=== PATIENT | female | born 1970 | race Caucasian/White ===

== ENCOUNTER 2016-04-23 20:32 | Observation (INO) | payer BC ==
[2016-04-23] MEDS ORDERED: ASPIRIN 325 MG TABLET.DR PO ONE (20:36)
[2016-04-23] MEDS ORDERED: MAG HYDROX/ALUMINUM HYD/SIMETH 30 ML UDC PO ONE (20:36)
[2016-04-23] MEDS ORDERED: LIDOCAINE HCL 20 ML UDC PO ONE (20:36)
--- NOTE | 2016-04-23 20:45 | ERNOTE ---
Medical Problem HPI - Narrative Date of Service: 04/23/16 - General Time Seen by Provider: 04/23/16 20:34 Source: patient Exam Limitations: no limitations - Immun/Allergies/Home Medications Allergies/Adverse Reactions: Allergies ezetimibe [From Vytorin] Allergy (Verified 04/23/16 20:36) rosuvastatin calcium [From Crestor] Allergy (Verified 04/23/16 20:36) simvastatin [From Vytorin] Allergy (Verified 04/23/16 20:36) lisinopril Adverse Reaction (Verified 04/23/16 20:36) Home Medications: HOME MEDICATIONS Azithromycin [Zithromax] 250 mg PO DAILY 04/23/16 [Last Taken Unknown] Methylprednisolone [Medrol Dosepak] 4 mg PO DAILY 04/23/16 [Last Taken Unknown] busPIRone HCL [Buspar] 10 mg PO DAILY 04/23/16 [Last Taken Unknown] clonazePAM [Klonopin] 0.5 mg PO DAILY 04/23/16 [Last Taken Unknown] - History of Present History Narrative: Pt is here for substernal chest pains which began 15 min prior to presentation to ED. It radiates to the mid back. History of CAD and Gastric bypass. On Prednisone and Zpak for URI. pain started at rest. Review of Systems - Review of Systems Constitutional: Present: no symptoms reported EYE: Present: no symptoms reported ENT: Present: no symptoms reported Respiratory: Present: no symptoms reported Cardiology: Present: See HPI Gastrointestinal/Abdominal: Present: See HPI Genitourinary: Present: no symptoms reported Musculoskeletal: Present: no symptoms reported Skin: Present: no symptoms reported Physical Exam - Physical Exam General Appearance: Present: wd/wn, alert, no apparent distress - pt is obese Eye Exam: Normal inspection: bilateral, PERRL: bilateral, EOMI: bilateral Ears, Nose, Throat: Present: normal ENT inspection, hearing grossly normal, normal pharynx Neck: Present: normal inspection, nontender, supple Respiratory: Present: no respiratory distress, normal breath sounds, chest nontender, lungs clear Cardiovascular/Chest: Present: regular rate, rhythm, no murmur, normal peripheral pulses Gastrointestinal/Abdominal: Present: normal bowel sounds - obese Extremity Exam: Present: normal inspection, non-tender, no edema, normal range of motion ED Progress - Date and Time Seen: Date and Time: Patient's chest pain did NOT go away with GI cocktail or with Morphine but resolved with Sublingual Nitro. Will admit pt for Chest pain 04/23/16 21:54 - Results and Orders Patient's Lab Results:: I have reviewed the patient's lab results. - Vital Signs Patient's Vital Signs:: I have reviewed the patient's vital signs. Departure - Departure Clinical Impression: Chest pain Qualifiers: Chest pain type: unspecified Qualified Code(s): R07.9 - Chest pain, unspecified Disposition: [facility] Condition: Fair Referrals: [Primary Care Provider] -
[2016-04-23 20:52] LABS: Hematocrit 40.4 % (37.0-47.0); Hemoglobin 13.5 gm/dL (12.5-16.0); Mean Cell Volume 88.8 fl (78-100); Mean Corpuscular Hemoglobin 29.7 pg (27-31); Mean Corpuscular Hgb Conc 33.4 g/dl (32-36); Mean Platelet Volume 10.6 fl (6.0-9.5); Neutrophil # 3.4 K/mm3 (1.3-6.0); Neutrophil % 43.5 % (42-75.0); Platelet Count 254 K/mm3 (150-450); Red Blood Count 4.55 M/mm3 (4.2-5.4); Red Cell Distribution Width 12.3 % (11.5-14.0); White Blood Count 7.9 K/mm3 (4.0-10.5)
[2016-04-23] MEDS ORDERED: ASPIRIN 81 MG TAB.CHEW ONE (20:52)
[2016-04-23] MEDS ORDERED: ASPIRIN 325 MG TABLET.DR ONE (20:53)
[2016-04-23] MEDS ORDERED: MORPHINE SULFATE 2 MG/ML DISP.SYRIN IV ONE (20:55)
[2016-04-23] MEDS ORDERED: MORPHINE SULFATE 2 MG/ML DISP.SYRIN ONE (20:56)
[2016-04-23] MEDS ORDERED: NITROGLYCERIN 0.4 MG/TAB BTL SL ONE (21:04)
[2016-04-23 21:12] LABS: ALT 44 U/L (19-67); AST 41 U/L (0-48); Albumin * 3.5 gm/dl (3.4-5.0); Alkaline Phosphatase * 110 U/L (50-170); Anion Gap 16.1 mmol/L (6.8-13.8); BUN/Creatinine Ratio 23.8 (9.0-21.6); Bilirubin, Total 0.3 mg/dL (0.0-1.1); Blood Urea Nitrogen 19 mg/dL (3-23); Ca. Corrected For Albumin 8.7 mg/dL (8.4-10.2); Calcium * 8.6 mg/dL (7.9-10.9); Carbon Dioxide 26.9 mmol/L (24-32.6); Chloride 100 mmol/L (97-106); Glucose * 106 mg/dL (70-110); Sodium 139 mmol/L (132-142); Total Protein 7.1 gm/dL (6.2-8.2); Troponin I Less than 0.017 ng/ml (0.00-0.10)
--- NOTE | 2016-04-23 23:59 | HP ---
Chief Complaint - Chief Complaint Date of Service: 04/23/16 Time of Service: 23:37 Chief Complaint: "Chest Pain". Source of HPI- Pt; reliable, ER provider report. History of Present Illness: is a 45-yr-old [place] pt who sees TERRELL Chaney in [place]. She has a PMH of: GERD, HTN, HLD & CHARU. She states that all of the medical problems resolved after Gastric Bypass in 2012. Pt came in to the ER with complaints of Chest Pain. She states that the pain started around 8.15 and it was radiating to her upper back and both rib cages. The pain was sharp in nature and rated it at a 8/10 at the time it occurred. She was lying down in bed when she experienced the chest pain episode but she had not fallen asleep. She tried to move around and stretch and it did not get better. She denies the associated symptoms of: N/V,SOB, & Diaphoresis. The last meal was at 4.30 pm and she snacked at 6.30 pm before going to bed. During evaluation at the ED, the pain was relieved following administration of GI cocktail, Nitro SL, Aspirin & Morphine. At the time of physical examination, she rates her pain at 2/10. There is no reproduction of pain on chest wall palpation. She will be admitted under observation status for remote telemetry monitoring to rule out KS/ACS. - Patient's Past Medical History Patient History - Medical: Anxiety, Arthritis, Depression, GERD, Other Additional info: CHARU, Patient History - Cardiac/Respiratory: Hypertension Patient History - Cancer: No Hx of Cancer Patient History - Surgical Procedures: Appendectomy, Cholecystectomy, , Hysterectomy, Tubal Ligation, Other - Family History Father Family History - Medical: Family History - Cardiac/Respiratory: Pulmonary Embolism Mother Family History - Cardiac/Respiratory: Hypertension - Social History Living Situations: home Smoking Status: Never smoker Have you smoked in the past 12 months: No Do you dip or chew tobacco: No Alcohol Use: none Drug Use: none - Immunizations Immunizations Up to Date: Yes Hx Pneumococcal Vaccination: No History of Influenza Vaccine: No Review Of Systems (GEN) - Review of Systems Generalized/Overall Review: Absent: Weakness, Fever, Diaphoresis EENTM: Present: Nose Congestion. Absent: Eye Pain, Blurred Vision, Throat Pain Respiratory: Present: Cough, Shortness of Breath Cardiac: Absent: Chest Pain, Edema, Palpitations Abdominal: Absent: Nausea, Vomiting, Abdominal Pain, Constipation Genitourinary: Absent: Burning, Itching, Urgency, Frequency, Hematuria Musculoskeletal: Absent: Joint Pain, Back Pain, Joint Swelling Neurological: Absent: Headache, Anxiety, Depressed, Tremors, Weakness Skin: Absent: Dryness, Lesions, Bruising Endocrine: Absent: Intolerance to Cold, Intolerance to Heat, Excessive Sweating , Increased Thirst Misc: All systems neg except as marked Allergies/Adverse Reactions: Allergies Allergy/AdvReac Type Severity Reaction Status Date / Time ezetimibe [From Vytorin] Allergy Verified 04/23/16 20:36 rosuvastatin calcium Allergy Verified 04/23/16 20:36 [From Crestor] simvastatin [From Vytorin] Allergy Verified 04/23/16 20:36 lisinopril AdvReac Verified 04/23/16 20:36 Home Medications: HOME MEDICATIONS Azithromycin [Zithromax] 250 mg PO DAILY 04/23/16 [Last Taken Unknown] Methylprednisolone [Medrol Dosepak] 4 mg PO DAILY 04/23/16 [Last Taken Unknown] busPIRone HCL [Buspar] 10 mg PO DAILY 04/23/16 [Last Taken Unknown] clonazePAM [Klonopin] 0.5 mg PO DAILY 04/23/16 [Last Taken Unknown] Exam - Exam Vital Signs: Vital Signs - Last Taken Temp 37.2 C 04/23/16 23:01 Pulse 61 04/23/16 23:01 Resp 20 04/23/16 23:01 BP 134/80 04/23/16 23:01 Pulse Ox 98 04/23/16 23:01 Constitutional: Present: Alert, Oriented x3, No distress ENT Exam: Present: normal ENT inspection, hearing grossly normal, TMs normal Eye Exam: bilateral eye: normal inspection, PERRL Neck: Present: full range of motion, supple, normal inspection Back Exam: Present: normal inspection, no CVA tenderness Breasts: Present: Exam deferred Respiratory: Present: lungs clear, no accessory muscle use, No wheezing Cardiovascular/Chest: Present: regular rate, rhythm, no chest tenderness, no murmur Abdomen: Present: Normal bowel sounds, soft, nontender /Rectal: Present: Exam deferred Extremity: Present: non-tender, normal inspection, no pedal edema Skin Exam: Present: warm/dry, no cyanosis, cool/dry Lymphatic: Present: no adenopathy Neurologic: Present: no motor/sensory deficits, alert, oriented x 3 Appearance: Present: appropriate appearance, appropriate insight Eye contact: Present: cooperative, good eye contact, normal speech Thoughts: Present: normal thought pattern, no apparent hallucination Diagnostic Studies: Laboratory Results WBC 7.9 K/mm3 (4.0-10.5) 04/23/16 20:45 RBC 4.55 M/mm3 (4.2-5.4) 04/23/16 20:45 Hgb 13.5 gm/dL (12.5-16.0) 04/23/16 20:45 Hct 40.4 % (37.0-47.0) 04/23/16 20:45 MCV 88.8 fl (78-100) 04/23/16 20:45 MCH 29.7 pg (27-31) 04/23/16 20:45 MCHC 33.4 g/dl (32-36) 04/23/16 20:45 RDW 12.3 % (11.5-14.0) 04/23/16 20:45 Plt Count 254 K/mm3 (150-450) 04/23/16 20:45 MPV 10.6 fl (6.0-9.5) H 04/23/16 20:45 Immature Gran % (Auto) 0.40 % (0.001-0.429) 04/23/16 20:45 Immature Gran # (Auto) 0.03 K/mm3 (0.000-0.0310) 04/23/16 20:45 Neutrophils % 43.5 % (42-75.0) 04/23/16 20:45 Lymphocytes % 45.4 % (20-51) 04/23/16 20:45 Monocytes % 8.9 % (0.0-9) 04/23/16 20:45 Eosinophils % 1.3 % (0.0-3.0) 04/23/16 20:45 Basophils % 0.5 % (0.0-1.0) 04/23/16 20:45 Nucleated RBC % 0.0 k/mm3 (0-1) 04/23/16 20:45 Neutrophils # 3.4 K/mm3 (1.3-6.0) 04/23/16 20:45 Lymphocytes # 3.6 k/mm3 (1.5-3.5) H 04/23/16 20:45 Monocytes # 0.7 k/mm3 (0.0-1.0) 04/23/16 20:45 Eosinophils # 0.1 k/mm3 (0.0-0.7) 04/23/16 20:45 Absolute Basophils 0.0 k/mm3 (0.0-0.1) 04/23/16 20:45 Sodium 139 mmol/L (132-142) 04/23/16 20:45 Plasma Sodium 139 mmol/L (130-142) 04/23/16 20:45 Potassium 4.0 mmol/L (3.4-4.6) 04/23/16 20:45 Chloride 100 mmol/L (97-106) 04/23/16 20:45 Carbon Dioxide 26.9 mmol/L (24-32.6) 04/23/16 20:45 Anion Gap 16.1 mmol/L (6.8-13.8) H 04/23/16 20:45 BUN 19 mg/dL (3-23) 04/23/16 20:45 Creatinine 0.80 mg/dL (0.4-1.4) 04/23/16 20:45 Est GFR (Non-Af Amer) 82 mL/min (60-130) 04/23/16 20:45 BUN/Creatinine Ratio 23.8 (9.0-21.6) H 04/23/16 20:45 Random Glucose 106 mg/dL (70-110) 04/23/16 20:45 Calcium 8.6 mg/dL (7.9-10.9) 04/23/16 20:45 Calcium Adj for Albumin 8.7 mg/dL (8.4-10.2) 04/23/16 20:45 Total Bilirubin 0.3 mg/dL (0.0-1.1) 04/23/16 20:45 AST 41 U/L (0-48) 04/23/16 20:45 ALT 44 U/L (19-67) 04/23/16 20:45 Alkaline Phosphatase 110 U/L (50-170) 04/23/16 20:45 Troponin I Less than 0.017 ng/ml (0.00-0.10) 04/23/16 20:45 Total Protein 7.1 gm/dL (6.2-8.2) 04/23/16 20:45 Albumin 3.5 gm/dl (3.4-5.0) 04/23/16 20:45 Assessment/Plan - Assessment/Plan (1) Chest pain, rule out acute myocardial infarction Assessment: The first troponin and EKG was negative for KS/ACS. Will monitor serial troponins and repeat EKG. She can be discharged if results come back negative. Problem: Acute (2) GERD (gastroesophageal reflux disease) Problem: Chronic
--- NOTE | 2016-04-24 06:29 | DS ---
(1) Chest pain, rule out acute myocardial infarction Problem: Ruled-out (2) GERD (gastroesophageal reflux disease) Problem: Chronic Description of Stay: is a 45-yr-old W[place] pt who sees TERRELL Chaney in [place]. She has a PMH of: GERD, HTN, HLD & CHARU. She states that all of the medical problems resolved after Gastric Bypass in 2012. Pt came in to the ER on 04/24/16, with complaints of Chest Pain. She stated that the pain started around 8.15pm and it was radiating to her upper back and both rib cages. The pain was sharp in nature and rated it at a 8/10 at the time it occurred. She was lying down in bed when she experienced the chest pain episode but she had not fallen asleep. She tried to move around and stretch and it did not get better. She denied the associated symptoms of: N/V,SOB, & Diaphoresis. The last meal was at 4.30 pm and she snacked at 6.30 pm before going to bed. During evaluation at the ED, the pain was relieved following administration of GI cocktail, Nitro SL, Aspirin & Morphine. At the time of physical examination, she rates her pain at 2 /10. There is no reproduction of pain on chest wall palpation. She was admitted under observation status and placed under remote telemetry monitoring to rule out TN/ACS. She had serial troponins and repeat EKG done and all the results were negative of cardiac involvement or ACS/TN for that matter. There were no acute events overnight and she had no other symptoms that could suggest unstable angina. She is in a stable condition to be discharged home and to resume her normal activities. Procedures Performed: none Discharge Disposition: Home self care Disposition: Home self-care Condition: Good Discharge Activity: Activity as tolerated Discharge Diet: General/regular food Referrals: [Primary Care Provider] - Problem Oriented Discharge Instructions to Patient/Family: Indigestion, Chest Pain Observation Additional Patient Instructions (free text): Follow -up with your PCP Next week.- Nicky Arciniega Complete Home Medications List: Complete Home Medication List: Azithromycin [Zithromax] 250 mg PO DAILY 04/23/16 Methylprednisolone [Medrol Dosepak] 4 mg PO DAILY 04/23/16 busPIRone HCL [Buspar] 10 mg PO DAILY 04/23/16 clonazePAM [Klonopin] 0.5 mg PO DAILY 04/23/16 Methylprednisolone [Medrol] 4 mg PO TID@0700,1300,2100 tablet 04/24/16
[2016-04-24 06:35] VITALS: BP 132/75
[2016-04-24] MEDS ORDERED: METHYLPREDNISOLONE 4 MG TABLET PO SCH (07:00)
[2016-04-24] MEDS ORDERED: METHYLPREDNISOLONE 4 MG/TAB TAB.DS.PK PO SCH (09:00)
[2016-04-24] MEDS ORDERED: clonazePAM 0.5 MG TABLET PO SCH (09:00)
[2016-04-24] MEDS ORDERED: AZITHROMYCIN 250 MG TABLET PO SCH (09:00)
[2016-04-24] MEDS ORDERED: busPIRone HCL 5 MG TABLET PO SCH (09:00)
[2016-04-25] MEDS ORDERED: METHYLPREDNISOLONE 4 MG TABLET PO SCH (07:00)
[2016-04-26] MEDS ORDERED: METHYLPREDNISOLONE 4 MG TABLET PO SCH (07:00)
== END 2016-04-24 09:50 | disposition home or self-care (01) ==
LOC: EDBD → ER 20:32 → MERGE 22:34 → MS 22:34
PROVIDERS: ADMIT Nurse Practitioner; ATTEND Internal Medicine
DX: K21.9 Gastro-esophageal reflux disease without esophagitis (principal); I10 Essential (primary) hypertension; G47.33 Obstructive sleep apnea (adult) (pediatric); F41.9 Anxiety disorder, unspecified
CPT/HCPCS: 36415; 71020; 80053; 84484; 85025; 93005; 96374; 99283; G0378